=== PATIENT | female | born 1985 | race African-American/Black ===

== ENCOUNTER 2024-06-01 09:00 | Emergency (ER) | payer OTHER ==
[2024-06-01 09:13] VITALS: BP 115/68; PULSE 60; RESP 16; TEMP 97.2; BMI 36.4
[2024-06-01 10:36] LABS: PH,URINE 5.5 (5.0-8.0); URINE APPEARANCE CLEAR; URINE BILIRUBIN NEGATIVE (NEGATIVE); URINE COLOR DK YELLOW; URINE GLUCOSE (UA) NEGATIVE (NEGATIVE); URINE KETONE TRACE (NEGATIVE); URINE LEUK ESTERASE NEGATIVE (NEGATIVE); URINE NITRITE NEGATIVE (NEGATIVE); URINE PROTEIN TRACE (NEGATIVE)
[2024-06-01 10:40] LABS: HCG,QUALITATIVE URINE Negative
[2024-06-01 11:28] LABS: BASO % 0.8 % (0-2.0); EOS % 7.8 % (0-4.5); HEMATOCRIT 39.6 % (32.4-45.2); HEMOGLOBIN 12.8 GM/dL (10.7-15.3); LYMPH % 41.2 % (8-40); MCH 27.4 pg (25.7-33.7); MCHC 32.2 g/dl (32.0-36.0); MEAN PLT VOLUME 8.3 fl (7.5-11.1); MONO % 7.8 % (3.8-10.2); NEUT % 42.4 % (42.8-82.8); PLATELET COUNT 320 10^3/uL (134-434); RBC 4.66 M/mm3 (3.60-5.2); RDW 13.1 % (11.6-15.6); WHITE BLOOD COUNT 4.4 K/mm3 (4.0-10.0)
[2024-06-01 11:45] LABS: POTASSIUM 3.9 mmol/L (3.5-5.1)
[2024-06-01] MEDS ORDERED: ACETAMINOPHEN INJECTION 100 ML IVPB ONE (12:21)
[2024-06-01] MEDS: SODIUM CHLORIDE 0.9% 500 ML INFUS.BAG IV ONE (12:27)
[2024-06-01] MEDS: ACETAMINOPHEN 1000 MG/100 ML BAG IVPB ONE (12:28)
[2024-06-01 12:56] LABS: BLOOD UREA NITROGEN 12.2 mg/dL (7-18)
[2024-06-01 12:57] LABS: ALBUMIN 3.8 g/dl (3.4-5.0)
[2024-06-01 13:03] LABS: BILIRUBIN,TOTAL 0.6 mg/dL (0.2-1); CREATININE 0.8 mg/dL (0.55-1.3); TOT PROT 7.1 g/dl (6.4-8.2)
== END 2024-06-01 13:38 | disposition home or self-care (01) ==
LOC: JER 09:00
PROC: 3E033NZ Introduction of Analgesics, Hypnotics, Sedatives into Peripheral Vein, Percutaneous Approach (ICD-10-PCS; principal; 2024-06-01)
DX: R10.9 Unspecified abdominal pain (principal)
CPT/HCPCS: 36415; 80053; 81003; 84703; 85025; 87086; 99284-25; J0131